=== PATIENT | female | born 1965 | race Caucasian/White ===

== ENCOUNTER 2019-09-05 07:15 | Emergency (ER) | payer BC, OTHER ==
[~2019-09-05] VITALS: Ht 165.1 cm; Wt 63.5 kg
--- NOTE | 2019-09-05 07:24 | NUR ---
Dr. Camarillo at the bedside for MSE.
--- NOTE | 2019-09-05 07:47 | NUR ---
Patient discharged in stable conditon. Written and verbal after care instructions given. Patient verbalizes understanding of instructions.
== END 2019-09-05 07:48 | disposition home or self-care (01) ==
LOC: ER 07:15
DX: S90.122A Contusion of left lesser toe(s) without damage to nail, initial encounter (principal); W20.8XXA Other cause of strike by thrown, projected or falling object, initial encounter; Y93.89 Activity, other specified; Y92.89 Other specified places as the place of occurrence of the external cause; Y99.8 Other external cause status
CPT/HCPCS: 73660; A4663

== ENCOUNTER 2020-04-20 11:36 | Outpatient (CLI) | payer BC, OTHER ==
[2020-04-20 12:08] LABS: BASOPHILS # (AUTO) 0.1 K/uL (0.0-8.0); BASOPHILS % (AUTO) 0.9 % (0.0-2.0); EOSINOPHILS # (AUTO) 0.1 K/uL (0.0-0.7); EOSINOPHILS % (AUTO) 1.1 % (0.0-7.0); HEMATOCRIT 38.3 % (31.2-41.9); HEMOGLOBIN 12.6 g/dL (10.9-14.3); LYMPHOCYTES # (AUTO) 2.2 K/uL (20.0-40.0); LYMPHOCYTES % (AUTO) 32.6 % (20.5-51.5); MEAN CORPUSCULAR HEMOGLOBIN 29.1 uug (24.7-32.8); MEAN CORPUSCULAR HGB CONC 33 g/dL (32.3-35.6); MEAN CORPUSCULAR VOLUME 88.5 fL (75.5-95.3); MONOCYTES # (AUTO) 0.3 K/uL (2.0-10.0); MONOCYTES % (AUTO) 5.2 % (0.0-11.0); NEUTROPHILS % (AUTO) 60.2 % (38.5-71.5); PLATELET COUNT (AUTO) 227 K/uL (179-408); RED BLOOD CELL COUNT(AUTO) 4.33 MIL/uL (3.63-4.92); WHITE BLOOD COUNT (AUTO) 6.6 K/uL (3.8-11.8)
[2020-04-20 15:06] LABS: THYROID STIMULATING HORMONE 1.678 mIU/mL (0.358-3.740)
[2020-04-20 15:20] LABS: BILIRUBIN,TOTAL 0.2 mg/dL (0.2-1.0); CREATININE 0.9 mg/dL (0.6-1.3); POTASSIUM 4.3 mmol/L (3.5-5.1); TOTAL PROTEIN, SERUM 7.3 g/dL (6.4-8.2)
[2020-04-20 16:55] LABS: *BILIRUBIN,URIN NEGATIVE (NEGATIVE); *CLARITY,URINE CLEAR (CLEAR); *COLOR,URINE YELLOW (YELLOW); *KETONES,URINE NEGATIVE (NEGATIVE); *UROBILINOGEN,URINE 0.2 E.U./dl (NORMAL); LEUKOCYTE ESTERASE ,URINE NEGATIVE (NEGATIVE); NITRITE, URINE NEGATIVE (NEGATIVE); PH,URINE 8.5 (5.0-8.0); UGLUCOSE NEGATIVE (NEGATIVE)
[2020-04-20 16:58] LABS: *BLOOD, URINE TRACE (NEGATIVE)
[2020-04-20 20:03] LABS: RBC,URINE 0-3 /HPF (0-3)
[2020-04-20 20:04] LABS: BACTERIA,URINE FEW /HPF (NONE SEEN); SQUAMOUS EPITHELIAL CELL,UR FEW /HPF (NONE SEEN); WBC,URINE 0-3 /HPF (0-3)
[2020-04-21 08:22] LABS: *OCCULT BLOOD STOOL NEGATIVE (NEGATIVE)
== END 2020-04-20 23:59 | disposition home or self-care (01) ==
LOC: LAB 11:36
PROVIDERS: ATTEND Internal Medicine
DX: R53.1 Weakness (principal)
CPT/HCPCS: 36415; 84443; 84480; 85025

== ENCOUNTER 2022-03-18 09:49 | Emergency (ER) | payer OTHER ==
[~2022-03-18] VITALS: Ht 165.1 cm; Wt 63.5 kg
--- NOTE | 2022-03-18 10:08 | NUR ---
DR BAILEY AT BEDSIDE FOR EVALUATION.
--- NOTE | 2022-03-18 10:09 | NUR ---
at bedside exam in progress.
--- NOTE | 2022-03-18 10:19 | NUR ---
DR BAILEY REMOVED SUTURES - TOLERATED WELL BY PATIENT. PT DISCHARGED IN STABLE CONDITION; INSTRUCTIONS PER MD ORDERS.
[2022-03-18 10:20] VITALS: BP 140/73
== END 2022-03-18 10:21 | disposition home or self-care (01) ==
LOC: ER 09:49
DX: S31.119D Laceration without foreign body of abdominal wall, unspecified quadrant without penetration into peritoneal cavity, subsequent encounter (principal); X99.1XXD Assault by knife, subsequent encounter; R03.0 Elevated blood-pressure reading, without diagnosis of hypertension
CPT/HCPCS: A4663